=== PATIENT | female | born 1965 | race Caucasian/White ===

== ENCOUNTER 2018-07-18 17:37 | Inpatient (IN) | payer OTHER ==
[~2018-07-18] VITALS: Ht 157.5 cm; Wt 117.9 kg
[2018-07-18 17:39] VITALS: Ht 157.5 cm; Wt 117.9 kg
[2018-07-18 18:16] LABS: BASOPHIL % 0.3 % (0-2); PLATELET COUNT 195 x10^3mcL (130-400); RED CELL DISTRIBUTION WIDTH 14.5 % (11.5-14.5)
[2018-07-18] MEDS ORDERED: ALBUTEROL SULFAT3 M3 (18:28)
[2018-07-18 18:33] LABS: CALCIUM 8.3 mg/dL (8.5-10.1); CHLORIDE SERUM 101 mmol/L (98-107); GFR1 > 60 mL/min; GLUCOSE SERUM 203 mg/dL (74-106); POTASSIUM SERUM 3.8 mmol/L (3.5-5.1); SODIUM SERUM 141 mmol/L (136-145)
[2018-07-18 18:38] LABS: ALBUMIN 3.4 g/dL (3.4-5.0); ALKALINE PHOSPHATASE 118 U/L (46-116); ALT/SGPT 38 U/L (14-59); AST/SGOT 41 U/L (15-37); BILIRUBIN TOTAL 0.1 mg/dL (0.20-1.00); TOTAL PROTEIN, SERUM 7.5 g/dL (6.4-8.2)
[2018-07-18] MEDS ORDERED: LASIX20 MG PO (21:04)
[2018-07-18] MEDS ORDERED: LASIX20 MG (21:04)
[2018-07-18] MEDS ORDERED: ALBUTEROL0.63 MG/3 INH (21:04)
[2018-07-18 21:12] LABS: CHOLESTEROL/HDL RATIO 3.5; MAGNESIUM 3.6 mg/dL (1.8-2.4); PHOSPHOROUS 5.3 mg/dL (2.5-4.9)
[2018-07-18 21:20] LABS: T3 TOTAL 1.11 ng/mL
[2018-07-18 21:43] LABS: FREE T4 1.02 ng/dL (0.76-1.46); FREE THYROXINE INDEX 3.5 ug/dL (1.4-4.5)
[2018-07-18 21:51] VITALS: BP 112/66
[2018-07-19 01:01] LABS: UA SPECIFIC GRAVITY 1.025 (1.005-1.035); microscopic required? YES; urine erythrocyte 2+ (NEGATIVE)
[2018-07-19 01:10] LABS: AMPHETAMINE QUAL UR NONE DETECTED (See below)
[2018-07-19 05:15] VITALS: BP 112/66
[2018-07-19 05:34] VITALS: BP 110/64
[2018-07-19 06:37] LABS: PLATELET COUNT 268 x10^3mcL (130-400); RED CELL DISTRIBUTION WIDTH 14.1 % (11.5-14.5)
[2018-07-19 07:10] LABS: BASOPHIL % 0 % (0-2)
[2018-07-19 07:25] LABS: CALCIUM 8.4 mg/dL (8.5-10.1); CARBON DIOXIDE 30.2 mmol/L (21-32); CHLORIDE SERUM 105 mmol/L (98-107); CREATININE SERUM 0.8 mg/dL (0.6-1.0); GFR1 > 60 mL/min; GLUCOSE SERUM 168 mg/dL (74-106); MAGNESIUM 2.5 mg/dL (1.8-2.4); PHOSPHOROUS 3.8 mg/dL (2.5-4.9); POTASSIUM SERUM 4.5 mmol/L (3.5-5.1); SODIUM SERUM 140 mmol/L (136-145)
[2018-07-19 08:30] VITALS: BP 112/59
[2018-07-19 12:57] VITALS: BP 94/59
[2018-07-19 16:18] VITALS: BP 106/57
[2018-07-19 19:52] VITALS: BP 108/63
[2018-07-20 05:25] VITALS: BP 109/46
[2018-07-20 06:17] LABS: BASOPHIL % 0.3 % (0-2); PLATELET COUNT 292 x10^3mcL (130-400)
[2018-07-20 06:46] LABS: CALCIUM 8.3 mg/dL (8.5-10.1); CARBON DIOXIDE 33.8 mmol/L (21-32); CHLORIDE SERUM 103 mmol/L (98-107); CREATININE SERUM 0.8 mg/dL (0.6-1.0); GFR1 > 60 mL/min; GLUCOSE SERUM 128 mg/dL (74-106); MAGNESIUM 2.4 mg/dL (1.8-2.4); PHOSPHOROUS 4.8 mg/dL (2.5-4.9); POTASSIUM SERUM 4.2 mmol/L (3.5-5.1); SODIUM SERUM 141 mmol/L (136-145)
[2018-07-20 07:59] VITALS: BP 114/60
[2018-07-20 12:06] VITALS: BP 108/62
[2018-07-20 18:18] VITALS: BP 129/69
[2018-07-20 20:27] VITALS: BP 108/66
[2018-07-21 05:08] VITALS: BP 119/59
[2018-07-21 06:48] LABS: CALCIUM 8.3 mg/dL (8.5-10.1); CARBON DIOXIDE 34.9 mmol/L (21-32); CHLORIDE SERUM 104 mmol/L (98-107); CREATININE SERUM 0.9 mg/dL (0.6-1.0); GFR1 > 60 mL/min; GLUCOSE SERUM 123 mg/dL (74-106); POTASSIUM SERUM 3.8 mmol/L (3.5-5.1); SODIUM SERUM 144 mmol/L (136-145)
[2018-07-21 07:26] LABS: BASOPHIL % 0.2 % (0-2); PLATELET COUNT 278 x10^3mcL (130-400); RED CELL DISTRIBUTION WIDTH 14.1 % (11.5-14.5)
[2018-07-21 08:57] VITALS: BP 98/52
[2018-07-21 11:00] VITALS: BP 105/60
[2018-07-21] MEDS ORDERED: LEV500 PO (13:56)
[2018-07-21] MEDS ORDERED: PREDNISONE20 MG PO ×2 (13:57→13:58)
[2018-07-21 13:58] VITALS: BP 105/60
[2018-07-21] MEDS ORDERED: PREDNISONE5 MG PO (13:58)
[2018-07-21 13:59] VITALS: BP 122/49
[2018-07-21] MEDS ORDERED: PREDNISONE50 MG PO (14:18)
== END 2018-07-21 14:53 | disposition home or self-care (01) | DRG 189 ==
LOC: EDBD 17:37 → ED 17:37 → DU 20:48
PROVIDERS: Emergency Medicine; Family Medicine; Internal Medicine
DX: J96.21 Acute and chronic respiratory failure with hypoxia (principal); J45.901 Unspecified asthma with (acute) exacerbation; E44.1 Mild protein-calorie malnutrition; Z68.41 Body mass index [BMI] 40.0-44.9, adult; E11.65 Type 2 diabetes mellitus with hyperglycemia; E83.39 Other disorders of phosphorus metabolism; E83.41 Hypermagnesemia; E78.5 Hyperlipidemia, unspecified; E66.01 Morbid (severe) obesity due to excess calories; Z87.891 Personal history of nicotine dependence; Z99.81 Dependence on supplemental oxygen; Q71.0 Congenital complete absence of upper limb
CPT/HCPCS: 82962; 83880; 84439; 90732; 94150; J0171; J0456; J2920; J2930; J3475; J3535; J7050; J7620; J7626; Q0092